=== PATIENT | female | born 1955 | race Caucasian/White ===

== ENCOUNTER 2017-07-21 06:23 | Inpatient (IN) | payer OTHER ==
[2017-07-21] MEDS ORDERED: Succinylcholine Chloride 20 MG/ML 10 ml SYRINGE FS ONE (06:26)
[2017-07-21] MEDS ORDERED: Nitroglycerin 50 MG/250 ML BOT 250 ML ONE (06:33)
[2017-07-21] MEDS ORDERED: Fentanyl 20 MCG/ML 250 ML ONE (06:33)
[2017-07-21] MEDS ORDERED: Propofol 1,000 MG/100 ML VIAL IV ONE (06:55)
[2017-07-21] MEDS ORDERED: Rocuronium Bromide 50 MG/5 ML VIAL ONE ×2 (06:57)
[2017-07-21] MEDS ORDERED: Vecuronium 10 MG VIAL ONE (06:57)
[2017-07-21 07:02] LABS: Hematocrit 54.3 % (36.0-47.0); Mean Platelet Volume 7.7 fL (7.4-10.4); Neutrophil 33 % (42-75); White Blood Cell (WBC) Count 17.6 thou/uL (4.8-10.8)
[2017-07-21 07:13] LABS: Troponin I 0.014 ng/mL (< 0.028)
[2017-07-21 07:40] LABS: Bacteria/HPF None Seen HPF (None Seen); Bilirubin Negative (Negative); Blood, Urine Trace (Negative); Glucose, Urine (Dipstick) Negative (Negative); Hyaline Casts/LPF 4-6 HYALINE CAST LPF (0-3 Hyaline); Ketone, Urine Negative (Negative); Nitrite Negative (Negative); Protein, Urine (Dipstick) Negative (Neg-Trace); RBC/HPF None Seen HPF (0-3); Squamous Epithelial None Seen HPF (0-3); Urobilinogen 0.2 mg/dL (0.2-1.0)
[2017-07-21 07:42] LABS: Oxyhemoglobin 96.8 % (94.0-97.0); Sodium 135 mmol/L (135-148)
[2017-07-21 07:43] LABS: Modified Allen's Test NOT DONE; Vent YES
[2017-07-21 07:44] LABS: Mechanical Tidal Volume 500 ml; Mode IMV
--- NOTE | 2017-07-21 07:48 | RAD ---
PORTABLE SUPINE CHEST 1 VIEW: Date: 07/21/17 HISTORY: 61-year-old female with respiratory insufficiency. Central line placement. COMPARISON: 07/21/17. FINDINGS: NG tube and endotracheal tubes remain in place and stable. This is not a normal position. Extensive b ilateral alveolar and interstitial parenchymal changes, more so on the right lung, stable. IMPRESSION: Right subclavian catheter is coiled in the supraclavicular region and may well need to be reinserted. The tip extends somewhat cranially, not in a normal position. No pneumothorax. Stable extensive pare nchymal lung disease. Stable endotracheal tube and NG tube. POS: OFF
[2017-07-21 07:49] LABS: Lactic Acid - Sepsis 8.6 mmol/L (0.5-2.2)
[2017-07-21 07:50] LABS: Amphetamine Not Detected (NotDetected); Methadone Not Detected (NotDetected); Methamphetamine Not Detected (NotDetected)
[2017-07-21] MEDS ORDERED: Cefepime 2 GM/10 ML SYR ONE (08:05)
[2017-07-21 08:15] LABS: Acetaminophen Less than 6.0 mcg/mL (10.0-30.0); Salicylate Less than 8.0 mg/dL (15.0-30.0)
[2017-07-21] MEDS ORDERED: Vancomycin HCl 1.25 GM, Admixture Fee 1 EACH in Sodium Chloride 0.9% 250 ML 250 ML IVPB SCH (08:15)
[2017-07-21 08:17] LABS: ALT (SGPT) 30 U/L (8-55); AST (SGOT) 41 U/L (5-34); Alkaline Phosphatase 82 U/L (40-150); Anion Gap 16 mmol/L (10-20); BUN (Urea Nitrogen) 18 mg/dL (9.8-20.1); Bilirubin, Total 0.3 mg/dL (0.2-1.2); CK (CPK) 80 U/L (29-168); Calc. Creatinine Clearance 0 mL/min (70-130); Calcium 8.1 mg/dL (7.8-10.44); Carbon Dioxide 17 mmol/L (22-29); Chloride 105 mmol/L (98-107); Estimated GFR-MDRD 51; Globulin 3.1 g/dL (2.4-3.5); Magnesium 1.8 mg/dL (1.6-2.6); Protein, Total 6.8 g/dL (6.0-8.3)
--- NOTE | 2017-07-21 08:45 | RAD ---
CHEST 1 VIEW: HISTORY: A 61-year-old female with dyspnea. FINDINGS: NG tube and endotracheal tubes have been placed in satisfactory location. Extensive bilateral alveol ar interstitial opacities more dense throughout the right lung. Findings are certainly concerning fo r extensive bilateral pneumonia versus asymmetric edema. IMPRESSION: Very extensive confluent alveolar and interstitial opacities throughout almost the entire right lung and the left perihilar region, evidence for extensive bilateral pneumonia versus asymmetric edema. L luciano support tubes in place. POS: OFF
--- NOTE | 2017-07-21 08:50 | RAD ---
PORTABLE CHEST 1 VIEW: DATE: 07/21/17. TIME: 7:36 a.m. HISTORY: Central line placement, respiratory failure. FINDINGS: Comparison is made with the earlier exam of 7:08 a.m. There has been interval removal of the right-sided central line. There has been interval placement o f a left subclavian central line with tip in the projection of the SVC close to the cavoatrial juncti on. No pneumothorax is seen. The remainder of the exam is otherwise stable. POS: GUILLERMINA
[2017-07-21] MEDS ORDERED: Ventilator Sedation Protocol 1 EACH FS ONE (09:31)
[2017-07-21] MEDS ORDERED: Acetaminophen 650 MG Suppository PR PRN (09:31)
[2017-07-21] MEDS ORDERED: Bisacodyl 10 MG SUPP PR PRN (09:31)
[2017-07-21] MEDS ORDERED: Ondansetron HCl/PF 4 MG/2 ML Vial IVP PRN (09:31)
[2017-07-21] MEDS ORDERED: DISCONTINUE PREVIOUS NARCOTIC PAIN MEDICATIONS AND BENZODIAZEPINES FS SCH (10:05)
[2017-07-21] MEDS ORDERED: Fentanyl 20 MCG/ML 250 ML IVPB SCH (10:05)
[2017-07-21] MEDS ORDERED: Lorazepam 2 MG/ML VIAL SLOW IVP PRN (10:05)
[2017-07-21] MEDS ORDERED: Propofol 1,000 MG/100 ML VIAL IV PRN (10:05)
--- NOTE | 2017-07-21 11:21 | HP ---
PRIMARY CARE PHYSICIAN: [place] call. CHIEF COMPLAINT: Respiratory distress. HISTORY OF PRESENT ILLNESS: This is a 61-year-old white female who reportedly called EMS due to dif ficulty breathing. When EMS got there, she was in severe respiratory distress, they did put her on BiPAP and bringing her into the emergency room. In the emergency room, she was found to be continue d to be in severe respiratory distress and so she was intubated. No further history is available un certain how long her symptoms have been going on. The remainder of past medical history is taken fr om her chart from 2013. In the emergency room, the patient was found to be severely hypertensive wi th blood pressures in the 200s/140s range. She was also found to be febrile at 100.8. Her lactic a jasper just come back positive, elevated as well as she had a leukocytosis. She was severely acidotic with elevated CO2 and pH of 7.1. The patient has been doing better after intubation and is being ad mitted to the ICU. PAST MEDICAL HISTORY: 1. Hypertension. 2. Migraines. 3. Hypothyroidism. 4. Constipation. 5. Hyperlipidemia. PAST PSYCHIATRIC HISTORY: 1. Anxiety. 2. OCD. 3. Major depression. PAST SURGICAL HISTORY: None. ALLERGIES: PENICILLIN, AMBIEN, KLONOPIN, REMERON, TRAZODONE, and VALIUM. CURRENT MEDICATIONS: Unknown. FAMILY HISTORY: Hypertension in her mother. SOCIAL HISTORY: No tobacco, alcohol, or illicit drug use at her previous admission in 2013, single without children. No known family members. The patient did have some friends come and visit her be fore I arrived in the ER there, currently gone now. REVIEW OF SYSTEMS: Unable to obtain secondary to the patient's intubated and sedated status. PHYSICAL EXAMINATION: VITAL SIGNS: Blood pressure currently 112/65, pulse 111, respirations 22, temperature 98.6, and O2 sat 97% on the ventilator. GENERAL: This is a well-developed, obese white female who is intubated and sedated, now moving air easily. HEENT: Pupils are equally round and reactive to light. They are both dilated to about 5 mm and equ al. Oropharynx intubated. No lesions noted. NECK: No deformity or bruising noted. No JVD. HEART: Regular rate and rhythm, no murmurs, rubs or gallops. LUNGS: Clear to auscultation bilaterally, no wheezes, crackles or rhonchi. The patient has good ai r movement throughout, some rare crackles in bilateral bases. ABDOMEN: Soft, without masses or organomegaly. Intact bowel sounds. GENITOURINARY: The patient has a Wagner catheter in place. No injuries or discharge noted. EXTREMITIES: No clubbing, cyanosis or edema. The patient has good peripheral pulses. SKIN: The patient does have a few very small abraded areas on her right foot and second toe. These did not have any surrounding cellulitis, most to be healing well, very mild. No other rashes or br uising noted. NEUROLOGIC: The patient is sedated on ventilator. She is arousable and can nod her head yes or no. Denies any current pain or complaints rather than goes back to sleep. Denies any family members h aving any relatives. Deep tendon reflexes are 2+ in all extremities. She has downgoing toes bilate rally. She does move all four extremities to stimulation. No facial droop. No eye deviation. PSYCHIATRIC: Unable to assess at this time. LABORATORY DATA: White blood cell count 17.6 with a lymphocytic predominance of 63%, hemoglobin 17, hematocrit 54, and platelet count 494. ABG done right after intubation shows a pH of 7.1, a pCO2 o f 64, and pO2 of 145. Complete metabolic panel was notable for a sodium of 133, bicarbonate of 17, glucose of 290, and AST of 41. The rest of remainder were normal. Brain natriuretic peptide is taye vated at 411. CK-MB and troponin were normal. Lactic acid was elevated at 8.6. Urinalysis shows l arge leukocyte esterase greater than 50 to too numerous to count white blood cells, but no bacteria. Toxicology screen was negative. Her urine drug screen was negative and her blood toxicology scree n was negative for acetaminophen and salicylate. No alcohol. Chest x-ray: I did review the chest x-ray done in the emergency room along with the radiologist's report. Chest x-ray shows extensive a lveolar interstitial opacities throughout the entire right lung in the left perihilar region most li renee pneumonia versus an asymmetric edema. She also had x-rays after her intubation which shows the OG tube in good place. Her initial right-sided central line was reflected back up to where the nec k and so it was related to the left subclavian lines put in and now in good position. ASSESSMENT: 1. Acute respiratory failure, now on the ventilator. 2. Severe pneumonia. 3. Sepsis secondary to severe pneumonia. The patient put on cefepime and vancomycin for likely com munity-acquired pneumonia with PENICILLIN allergy. We will need to recheck a lactic acid and appear s more fluid overloaded than depleted, so will not bolus any fluids at this point. 4. Respiratory acidosis secondary to acute respiratory failure. We will need to repeat an ABG to s ee if this is clear with good ventilation. 5. Hypertensive emergency, improved, now down to normal range blood pressures after sedation with f entanyl and propofol. 6. Elevated brain natriuretic peptide, possible congestive failure. We will get echocardiogram. 7. Gastrointestinal prophylaxis, put the patient on Pepcid twice a day IV. 8. Deep venous thrombosis prophylaxis, put the patient on Lovenox subcutaneous and sequential compr ession devices and TEDs while in bed and intubated. CODE STATUS: The patient communicated she wanted to be resuscitated to the emergency room staff. W hen she first arrived, she is now unable to communicate. We do not have any family. She is FULL CO DE at this time. 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
--- NOTE | 2017-07-21 12:24 | CON ---
DATE OF CONSULTATION: 07/21/2017 SERVICE: Pulmonary Medicine. HISTORY OF PRESENT ILLNESS: The patient is a 61-year-old white female with past medical history significant for hypertension. She was in her usual state of health last night when she went to bed. This morning, she woke up abruptly short-winded. She presented to the Emergency Department and her blood pressures were in the 250 range. She was desaturating down into the 60s and actively tachypneic. She was intubated after she failed BiPAP. At this point, she is sedated and comfortable. She is alert and able to answer any types of questions that she asked. She denies any current fevers, chills, nausea or vomiting. She had no recent sick contacts. She has no known history of heart disease so far she is aware. PAST MEDICAL HISTORY: 1. Hypertension. 2. Dyslipidemia. 3. Hypothyroidism. 4. Migraine headaches. PAST SURGICAL HISTORY: None. ALLERGIES: PENICILLIN, AMBIEN, KLONOPIN, REMERON, TRAZODONE, VALIUM. MEDICATIONS: List of inpatient medications were reviewed. Multiple updates were made. FAMILY HISTORY: Noncontributory. SOCIAL HISTORY: Negative for alcohol, tobacco or illicit drug use. She has no exposure to chemicals, dusts, asbestos or tuberculosis. REVIEW OF SYSTEMS: A 10-point review of systems including general, head, eyes, ears, nose, throat, cardiovascular, respiratory, GI, , musculoskeletal, neurologic and skin is negative except as mentioned in the HPI. PHYSICAL EXAMINATION: VITAL SIGNS: Afebrile, pulse 104, blood pressure 91/59, respirations 9, saturation 94% on 45% FIO2 and a PEEP of 12. HEENT: Normocephalic, atraumatic. Sclerae are white, conjunctivae pink. Oral and nasal mucosa is moist without lesions. LUNGS: Excellent air entry. Crackles are present throughout bilateral lung torre. HEART: Normal rate, regular. ABDOMEN: Soft, nontender, nondistended, bowel sounds positive. MUSCULOSKELETAL: No cyanosis or clubbing. No pitting in the bilateral lower extremities. NEUROLOGIC: Grossly nonfocal. LABORATORY DATA: WBC 17.6, hemoglobin 17.1, platelets 494,000. Neutrophil count is 33%, lymphocytes were 63%. PH 7.10, pCO2 64, pO2 145 on FIO2 of 50% and a PEEP of 10 at that time. Lactate 8.6, it is now clear to 1.6. Basic metabolic profile, and liver function studies are unremarkable. BNP 411, troponin 0.014. WBCs are greater than 50 and leukocyte esterase is large, but nitrites are unremarkable. No bacteria were identified. Urine drug screen is negative including cocaine, alcohol, acetaminophen and salicylates. IMAGING: Chest x-ray demonstrates asymmetric edema of the right lung greater than the left lung. That being said, the diaphragm were clearly identified making noncardiogenic edema a possibility, although less likely. Endotracheal tube is in good position. The carinal angle is enlarged suggesting left atrial dilation and/or subcarinal lymphadenopathy. Cephalization is evident. Left subclavian central line is in good position. ASSESSMENT: 1. Acute hypoxic respiratory failure. 2. Hypertensive emergency. 3. Flash pulmonary edema. 4. Possible community-acquired pneumonia. 5. Systemic inflammatory response syndrome. PLAN: We will continue on empiric antibiotics. These can be de-escalated tomorrow if her oxygen requirements improved dramatically. We will minimize fluids. At this point, she does not look too terribly volume overloaded, so we will just focus on controlling her blood pressure and seeing whether or not these other issues resolve. Pulmonary and Critical Care will continue to follow while the patient remains in this location. Multiple adjustments have been made to her ventilator settings in order to improve comfort and target goals of ventilation. Critical care time: 30 minutes. DANIELE
[2017-07-21] MEDS: Carvedilol 6.25 MG TAB PO SCH (16:30)
[2017-07-21] MEDS ORDERED: Cefepime 2 GM in Sodium Chloride 0.9% 100 ML IVPB SCH (21:00)
[2017-07-21] MEDS: Famotidine/PF 20 mg/2ml Vial SLOW IVP SCH (21:20)
[2017-07-21] MEDS: Vancomycin HCl 1.25 GM in Sodium Chloride 0.9% 250 ML 250 ML IVPB SCH (21:25)
[2017-07-21] MEDS: Cefepime 2 GM, Syringe 2.5 ML in Sterile Water 10 ML SLOW IVP SCH (21:26)
[2017-07-22 04:24] LABS: #Eosinphils 0.1 thou/uL (0.0-0.7); #Lymphocytes 1.8 thou/uL (1.20-3.40); #Monocytes 0.5 thou/uL (0.11-0.59); #Neutrophils 6.7 thou/uL (1.40-6.50); %Basophils 0.4 % (0.0-1.0); %Eosinophils 0.7 % (0.0-10.0); %Lymphocytes 20.1 % (21.0-51.0); %Monocytes 5.9 % (0.0-10.0); Hematocrit 35.6 % (36.0-47.0); Red Blood Cell (RBC) Count 3.88 mill/uL (4.20-5.40); White Blood Cell (WBC) Count 9.1 thou/uL (4.8-10.8)
[2017-07-22 04:51] LABS: Anion Gap 14 mmol/L (10-20); BUN (Urea Nitrogen) 20 mg/dL (9.8-20.1); Calc. Creatinine Clearance 93 mL/min (70-130); Calcium 7.6 mg/dL (7.8-10.44); Carbon Dioxide 18 mmol/L (22-29); Chloride 111 mmol/L (98-107); Estimated GFR-MDRD 66
--- NOTE | 2017-07-22 07:25 | PDOC.FM ---
Addendum entered and electronically signed by Jai Granados MD 07/22/17 08: 20: Upon clinic chart review patient only on lisinopril 10 mg as an outpatient. Also w/ what appears to be new LBBB on EKG obtained yesterday compared to prior EKG in 2013. Concern for CAD as nidus for flash pulm edema w/ acute left ventricular dysfunction. Will plan to consult cardiology for further evaluation and likely stress vs cath during this hospitalization. Original Note: - Subjective Subjective: DENTON overnight, vital signs stable off nitro gtt. On minimal sedation this AM and able to respond to yes no questions while on spontaneous breathing trial. Denies any pain. Afebrile. States has not been taking BP meds. - Objective MAR Reviewed: Yes Vital Signs & Weight: Vital Signs (12 hours) Temp Pulse Resp BP Pulse Ox 07/22/17 06:58 108 H 109/67 07/22/17 06:00 11 L 07/22/17 04:00 97.9 F 8 L 07/22/17 02:03 90 102/56 L 07/22/17 02:00 7 L 07/22/17 00:00 98.5 F 9 L 07/21/17 22:10 101 H 91/53 L 07/21/17 22:00 8 L 07/21/17 20:00 98.4 F 101 H 11 L 94 L Weight Weight 82.1 kg Most Recent Monitor Data Heart Rate from ECG 108 NIBP 125/89 NIBP BP-Mean 99 Respiration from ECG 14 SpO2 97 I&O: 07/21/17 07/22/17 07/23/17 06:59 06:59 06:59 Intake Total 204.9 Output Total 685 Balance -480.1 Result Diagrams: 07/22/17 04:11 07/22/17 04:11 <Jai Granados - Last Filed: 07/22/17 07:23> - Objective Vital Signs & Weight: Vital Signs (12 hours) Temp Pulse Resp BP Pulse Ox 07/22/17 08:40 91 12 96 07/22/17 08:18 126/68 07/22/17 08:00 99.2 F 91 12 95 07/22/17 07:00 99.2 F 07/22/17 06:58 108 H 109/67 07/22/17 06:00 11 L 07/22/17 04:00 97.9 F 8 L 07/22/17 02:03 90 102/56 L 07/22/17 02:00 7 L 07/22/17 00:00 98.5 F 9 L Weight Weight 82.1 kg Most Recent Monitor Data Heart Rate from ECG 89 NIBP 103/61 NIBP BP-Mean 79 Respiration from ECG 16 SpO2 94 I&O: 07/21/17 07/22/17 07/23/17 06:59 06:59 06:59 Intake Total 204.9 250 Output Total 685 125 Balance -480.1 125 Result Diagrams: 07/22/17 04:11 07/22/17 04:11 <Angelina Mckinnon - Last Filed: 07/22/17 10:45> Phys Exam - Physical Examination Constitutional: NAD intubated HEENT: moist MMs, oral pharynx no lesions Neck: no nodes Respiratory: clear to auscultation bilateral slightly tachycardic Gastrointestinal: soft, non-tender, no distention Musculoskeletal: no edema, pulses present Neurological: moves all 4 limbs Psychiatric: A&O x 3 <Jai Granados - Last Filed: 07/22/17 07:23> Dx/Plan (1) Hypertensive emergency Code(s): I16.1 - HYPERTENSIVE EMERGENCY Status: Acute Plan: Bp stable 120's off nitro gtt will restart home BP meds today and continue to closely monitor will obtain echo in setting of flash pulmonary edema w/ likely acute left ventricular dysfunction Appears to be secondary to non-compliance upon speaking with patient this AM will review her clinic chart to discover home BP meds Pt at risk for CAD as well, will check lipid panel and start on statin/ASA (2) Flash pulmonary edema Code(s): J81.0 - ACUTE PULMONARY EDEMA Status: Acute Plan: 10/17 #1 Doing well on spontaneous breathing trial this AM and w/ clear lung torre. Plan for extubation this AM and likely TXR to tele later this afternoon if she continues to do well CXR this AM pending will obtain echo to monitor for CHF w/ acute left ventricular dysfunction (3) Hypertension Code(s): I10 - ESSENTIAL (PRIMARY) HYPERTENSION Status: Acute Plan: will plan to restart home BP meds s/p clinic chart review (4) Hypothyroidism Code(s): E03.9 - HYPOTHYROIDISM, UNSPECIFIED Status: Acute Plan: Cont. w/ home medications (5) Hyperlipidemia Code(s): E78.5 - HYPERLIPIDEMIA, UNSPECIFIED Status: Acute Plan: Check FLP Statin <Jai Granados - Last Filed: 07/22/17 07:23> Attending Addendum - Attending Addendum I personally evaluated the patient and discussed the management with Dr. Granados on 07/22/17. I agree with the History, Examination, Assessment and Plan documented above with any addition or exceptions noted below. Patient with new LBBB, cardiology consulted for recs. Flash PE significantly resolved, no evidence today of pneumonia, will stop antibiotics. Blood pressures back to normal. Patient also now extubated, will likely move out of ICU later today or tomorrow morning. Speech therapy to follow for assistance restarting diet after extubation. <Angelina Mckinnon - Last Filed: 07/22/17 10:45>
[2017-07-22] MEDS: Carvedilol 6.25 MG TAB PO SCH ×2 (08:18→21:45)
[2017-07-22] MEDS: Cefepime 2 GM, Syringe 2.5 ML in Sterile Water 10 ML SLOW IVP SCH (08:19)
[2017-07-22] MEDS: Famotidine/PF 20 mg/2ml Vial SLOW IVP SCH (08:20)
[2017-07-22] MEDS: Vancomycin HCl 1.25 GM in Sodium Chloride 0.9% 250 ML 250 ML IVPB SCH (08:22)
--- NOTE | 2017-07-22 08:56 | RAD ---
SEMIUPRIGHT PORTABLE CHEST 1 VIEW: HISTORY: A 61-year-old female with respiratory insufficiency and intubation. FINDINGS: Stable life support tubes. There has been marked improvement in the extensive bilateral alveolar int erstitial opacities with some minimal residual parenchymal changes diffusely in the right lung. IMPRESSION: Marked improvement in the bilateral alveolar interstitial opacities with minimal residual parenchymal change in the right lung. Continue short-term followup. No new process. POS: GUILLERMINA
[2017-07-22] MEDS ORDERED: Enoxaparin Sodium 40 MG/0.4 ML SYRINGE SC SCH (09:00)
[2017-07-22] MEDS ORDERED: Lisinopril/Hydrochlorothiazide 10 mg/12.5 mg Tablet PO SCH (10:00)
--- NOTE | 2017-07-22 10:44 | PRG ---
DATE OF SERVICE: 07/22/2017 SERVICE: Pulmonary Medicine. INTERVAL HISTORY: The patient is doing fantastic from a respiratory standpoint. Overnight, we wean ed her PEEP down to 5, and her FiO2 to 21%. She is breathing comfortably on a spontaneous breathing trial this morning. She has woken up perfectly awake and alert. Her heart rate is under better co ntrol and her blood pressure is very stabilized. Otherwise, she has no specific complaints of nause a, vomiting or diarrhea. She is requesting something like ice chips in her mouth because she has go t a dry mouth. PHYSICAL EXAMINATION: VITAL SIGNS: Afebrile with a T-max of 99.2. Pulse 91, blood pressure 126/68, respirations 12 and s aturation 96% on 21% FiO2 and a PEEP of 5. HEENT: Normocephalic, atraumatic. Sclerae are white, conjunctivae pink. Oral and nasal mucosa is moist without lesions. LUNGS: Excellent air entry. Dependent crackles are still present that is much improved, however. There is no prolonged expiratory phase, wheezing or rhonchi. HEART: Normal rate, regular. ABDOMEN: Soft, nontender, nondistended, bowel sounds positive. MUSCULOSKELETAL: No cyanosis or clubbing. No pitting in the bilateral lower extremities. NEUROLOGIC: Grossly nonfocal. LABORATORY DATA: WBC 9.1, hemoglobin 11.5 and platelets are 245,000. Basic metabolic profile is es sentially unremarkable. Lactate cleared. BNP was previously 400 with a normal troponin. Blood cul tures x2 are unremarkable. IMAGING DATA: Chest x-ray demonstrates marked improvement in the asymmetric pulmonary edema. No si gnificant effusions are identified today. Endotracheal tube is in good position. There is a left-s ided subclavian central venous catheter that terminates in a good position. Enteric catheter course s below the level of the diaphragm in the midline. ASSESSMENT: 1. Acute hypoxic respiratory failure. 2. Hypertensive emergency. 3. Flash pulmonary edema. 4. Community-acquired pneumonia. 5. Systemic inflammatory response syndrome, resolved. PLAN: She will continue her spontaneous breathing trial. If she meets criteria at the end of this thing, extubation will be considered. I agree with rapidly de-escalating her antibiotic therapy. S he will remain in the ICU through the day, but if she requires oxygen into the afternoon, I would li ke to keep her in the ICU as she had a rapid decompensation previously. Blood pressure management w ill be continued and we will try to maintain her with a systolic blood pressure less than 160 since she certainly tolerating the 120s. Pulmonary Critical Care will continue to follow for the time polly vega. CRITICAL CARE TIME: 30 minutes.
[2017-07-22] MEDS: Aspirin 81 mg Enteric Coated Tablet PO SCH (12:01)
[2017-07-22 13:25] LABS: Troponin I 0.185 ng/mL (< 0.028)
[2017-07-22] MEDS ORDERED: Furosemide 20 MG/2 ML VIAL SLOW IVP SCH (16:45)
[2017-07-22] MEDS ORDERED: Communication Order-Pharmacy FS SCH (16:45)
[2017-07-22] MEDS: Sodium Chloride 0.9% 1,000 ML IV SCH (16:50)
[2017-07-22] MEDS ORDERED: traMADol HCl 50 MG TAB PO PRN (17:05)
[2017-07-22] MEDS ORDERED: Acetaminophen 325 MG TAB PO PRN (18:38)
[2017-07-22] MEDS ORDERED: Famotidine 20 MG TAB PO SCH (21:00)
[2017-07-22] MEDS ORDERED: Atorvastatin Calcium 40 MG TAB PO SCH (21:00)
--- NOTE | 2017-07-22 21:12 | CON ---
DATE OF CONSULTATION: 07/22/2017 HISTORY OF PRESENT ILLNESS: Mary Javier is a 61-year-old white female who has undergone cardiac catheterization in the past. In 02/1998, she underwent catheterization. She had an ejection fraction of 46% with mid and distal anterolateral wall akinesis. This appeared to be in the diagonal distribution. Coronary arteriography revealed the diagonal to have a 50% to 60% lesion. 50- 60% in a high obtuse marginal and right coronary artery was large and normal. No other records of that time period are available. She did come to the office and was evaluated by Dr. Charles in 03/2017. She has been taking lisinopril and her blood pressure not been controlled. She also had been on metoprolol previously, but stopped that due to feeling short of breath one time. She is having increasing episodes of palpitations after stopping metoprolol. She was started on carvedilol 6.25 b.i.d. She was to return for follow up on 04/30/2017, with an echocardiogram; however, she never did return. She does admit to missing her second dose of carvedilol many times. She states over the last several days, she has been noticing increasing dyspnea on exertion. Last night, she was very short of breath. She called the EMS and she was in severe respiratory distress. She was placed on BiPAP, brought to the emergency room and intubated in the emergency room. She also had a blood pressure of 200/140. Overnight, her pulmonary edema has improved. She has been extubated. She denies any chest, arm, neck or jaw discomfort. PAST MEDICAL HISTORY: Hypertension, hypercholesterolemia, migraine headaches, hypothyroidism. MEDICATIONS: Abilify 15 mg b.i.d., bupropion 150 b.i.d., vitamin D3 of 50,000 units daily, carvedilol 6.25 b.i.d., Paxil 20 daily, lisinopril 10 daily. ALLERGIES: PENICILLIN, VALIUM, TRAZODONE, KLONOPIN and REMERON. OPERATIONS: None. SOCIAL HISTORY: She does not smoke or drink. 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 FAMILY HISTORY: Negative for coronary artery disease, myocardial infarction or CABG. REVIEW OF SYSTEMS: Twelve-point review of systems, otherwise unremarkable. PHYSICAL EXAMINATION: GENERAL: Blood pressure 123/104, pulse 102. HEENT: PERRL. NECK: Supple. LUNGS: Chest reveals expiratory wheezing bilaterally. CARDIOVASCULAR: S1 and S2 are normal, without any S3, S4 or murmurs. Carotid upstrokes normal without bruits. ABDOMEN: Normal bowel sounds, without tenderness or organomegaly. EXTREMITIES: Revealed no clubbing, cyanosis or edema. NEUROLOGIC: Grossly intact. SKIN: Warm and dry. LABORATORY AND IMAGING DATA: EKG reveals sinus tachycardia with left bundle branch block, which is an old finding. Echocardiogram revealed severe left ventricular systolic dysfunction with an ejection fraction of 25% to 30%, evidence for diastolic dysfunction, moderate mitral regurgitation and mild tricuspid regurgitation. White count 9100, hemoglobin 11.5, hematocrit 35.6, platelets 245 (It is of note that her initial hemoglobin was 17.1). PH of 7.10 , pCO2 of 64.4 and pO2 of 145.6. Sodium 139, potassium 4.4, chloride 111, carbon dioxide 18, BUN 20, creatinine 0.87. Cardiac enzymes; CK-MBs are normal. Troponin I is up to 0.200. Cholesterol 195, triglycerides 341, HDL 37 and LDL 90. Lactic acid initially was 8.6. BNP 411.4. Chest x-ray revealed pulmonary edema with right lung, much more affected than the left lung. After intubation and diuresis, her pulmonary edema has dramatically improved bilaterally. IMPRESSION: 1. Status post respiratory arrest. 2. Acute pulmonary edema. 3. Severe left ventricular dysfunction. 4. Acute on chronic systolic and diastolic congestive heart failure. 5. Hypertension, poorly controlled, noncompliant with medications. 6. Hyperlipidemia. 7. History of hypothyroidism. 8. Migraines. 9. Anxiety. 10. History of depression. 11. Obsessive compulsive disorder. RECOMMENDATIONS: I would change the patient to lisinopril plus furosemide. I will gradually increase the carvedilol dose. With flash pulmonary edema and respiratory arrest, she needs to undergo cardiac catheterization. Risks of this were discussed with the patient including , myocardial infarction, dye reaction, vascular injury, CVA, transfusion, limb loss, renal loss, etc. Also, risks of stent placement were discussed including , myocardial infarction, emergent CABG, restenosis, stent thrombosis, vessel perforation, etc. With her history of noncompliance with her carvedilol, I would only place a bare metal stent. [facility]
[2017-07-22] MEDS ORDERED: Aripiprazole 15 MG TAB PO SCH (21:45)
[2017-07-22] MEDS ORDERED: PARoxetine 20 MG TAB PO SCH (22:00)
[2017-07-22] MEDS ORDERED: Bupropion 150 MG SR TAB PO SCH (22:00)
[2017-07-23 04:53] LABS: Anion Gap 7 mmol/L (10-20); BUN (Urea Nitrogen) 14 mg/dL (9.8-20.1); Calc. Creatinine Clearance 108 mL/min (70-130); Calcium 8.3 mg/dL (7.8-10.44); Carbon Dioxide 29 mmol/L (22-29); Chloride 102 mmol/L (98-107); Estimated GFR-MDRD 83
[2017-07-23] MEDS: Sodium Chloride 0.9% 1,000 ML IV SCH (05:21)
[2017-07-23] MEDS: Carvedilol 6.25 MG TAB PO SCH ×3 (05:21→20:22)
[2017-07-23] MEDS ORDERED: Heparin 10,000 UNITS/1 ML VIAL ONE (07:32)
[2017-07-23 08:13] LABS: Free T3 2.45 pg/mL (1.71-3.71)
--- NOTE | 2017-07-23 08:35 | PDOC.FM ---
- Subjective Subjective: DENTON overnight, VSS on PO BP meds. Afebrile. on minimal O2 NC this AM. No new complaints. - Objective MAR Reviewed: Yes Vital Signs & Weight: Vital Signs (12 hours) Temp Pulse Resp BP Pulse Ox 07/23/17 08:00 98.3 F 79 16 100 07/23/17 05:21 105/71 07/23/17 03:32 97 07/23/17 03:00 98.3 F 07/22/17 23:00 98.2 F 07/22/17 21:45 140/80 Weight Admit Weight 81.647 kg Weight 82 kg Most Recent Monitor Data Heart Rate from ECG 73 NIBP 124/67 NIBP BP-Mean 81 Respiration from ECG 14 SpO2 98 I&O: 07/22/17 07/23/17 07/24/17 06:59 06:59 06:59 Intake Total 204.9 1470 Output Total 685 1860 215 Balance -480.1 -390 -215 Result Diagrams: 07/22/17 04:11 07/23/17 04:20 <Jai Granados - Last Filed: 07/23/17 08:33> - Objective Vital Signs & Weight: Vital Signs (12 hours) Temp Pulse Resp BP Pulse Ox 07/23/17 08:58 124/67 07/23/17 08:00 98.3 F 79 16 100 07/23/17 05:21 105/71 07/23/17 03:32 97 07/23/17 03:00 98.3 F 07/22/17 23:00 98.2 F Weight Admit Weight 81.647 kg Weight 82 kg Most Recent Monitor Data Heart Rate from ECG 85 NIBP 128/67 NIBP BP-Mean 83 Respiration from ECG 15 SpO2 97 I&O: 07/22/17 07/23/17 07/24/17 06:59 06:59 06:59 Intake Total 204.9 1470 40 Output Total 685 1860 275 Balance -480.1 -390 -060 Result Diagrams: 07/22/17 04:11 07/23/17 04:20 <Angelina Mckinnon - Last Filed: 07/23/17 10:00> Phys Exam - Physical Examination Constitutional: NAD HEENT: PERRLA Neck: no nodes Respiratory: no wheezing Cardiovascular: RRR, no significant murmur Gastrointestinal: soft, non-tender Musculoskeletal: no edema, pulses present Neurological: non-focal, normal sensation, moves all 4 limbs Psychiatric: A&O x 3 Skin: cap refill <2 seconds <Jai Granados - Last Filed: 07/23/17 08:33> Dx/Plan (1) Hypertensive emergency Code(s): I16.1 - HYPERTENSIVE EMERGENCY Status: Acute Plan: Bp stable 120's off nitro gtt on PO BP meds ECHO showing 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 w/ statin/ASA Plan to TXR out of ICU s/p cath (2) Flash pulmonary edema Code(s): J81.0 - ACUTE PULMONARY EDEMA Status: Acute Plan: 2/ #1 Will attempt to wean off NC today Pt to go for heart cath today w/ cardiology (3) Hypertension Code(s): I10 - ESSENTIAL (PRIMARY) HYPERTENSION Status: Acute Plan: Cont. w/ PO BP meds (4) Hypothyroidism Code(s): E03.9 - HYPOTHYROIDISM, UNSPECIFIED Status: Acute Plan: Cont. w/ home medications Elevated TSH Will check T3/T4 and titrate meds as needed (5) Hyperlipidemia Code(s): E78.5 - HYPERLIPIDEMIA, UNSPECIFIED Status: Acute Plan: cont. w/ Statin <Jai Granados - Last Filed: 07/23/17 08:33> Attending Addendum - Attending Addendum I personally evaluated the patient and discussed the management with Dr. Granados on 07/23/17. I agree with the History, Examination, Assessment and Plan documented above with any addition or exceptions noted below. Cath today. Needs outpatient workup for GLYNN. Wean off O2 today. As long as cath goes well, will transfer out of ICU today. <Angelina Mckinnon - Last Filed: 07/23/17 10:00>
[2017-07-23] MEDS: Bupropion 150 MG SR TAB PO SCH ×2 (08:57→20:22)
[2017-07-23] MEDS: Aspirin 81 mg Enteric Coated Tablet PO SCH (08:57)
[2017-07-23] MEDS: Aripiprazole 15 MG TAB PO SCH ×2 (08:58→20:22)
[2017-07-23] MEDS: Lisinopril 10 MG TAB PO SCH (08:58)
[2017-07-23] MEDS ORDERED: Metoprolol Tartrate 100 MG TAB PO SCH (09:00)
[2017-07-23] MEDS ORDERED: PARoxetine 20 MG TAB PO SCH ×2 (09:00→21:00)
[2017-07-23] MEDS ORDERED: Lisinopril/Hydrochlorothiazide 10 mg/12.5 mg Tablet PO SCH (09:00)
[2017-07-23] MEDS ORDERED: Fentanyl 100 MCG/2 ML VIAL ONE (10:00)
[2017-07-23] MEDS ORDERED: Midazolam HCl 2 mg/2 ml Vial ONE (10:00)
[2017-07-23] MEDS ORDERED: Lidocaine 1% (PF) 30 ML VIAL ONE (10:10)
[2017-07-23] MEDS ORDERED: Protamine Sulfate 50 MG/5 ML VIAL ONE (10:39)
[2017-07-23] MEDS ORDERED: Sodium Chloride 0.9% 1,000 ML IV SCH (10:54)
[2017-07-23] MEDS ORDERED: Sodium Chloride 0.9% 200 ML IV SCH (11:00)
--- NOTE | 2017-07-23 13:04 | PRG ---
DATE OF SERVICE: 07/23/2017 SERVICE: Pulmonary Medicine. INTERVAL HISTORY: The patient is doing great from cardiovascular and respiratory standpoint. She i s on 2 liters nasal cannula. She denies any shortness of breath at this time. Otherwise, she is re turning to her usual state of health. PHYSICAL EXAMINATION: VITAL SIGNS: Afebrile, pulse 75, blood pressure 128/63, respirations 22, saturation 98% on 2 liters nasal cannula. GENERAL: Patient is awake, alert, in no apparent distress. LUNGS: Decent air entry with no prolonged expiratory phase. Dependent crackles are present. HEART: Normal rate, regular. ABDOMEN: Soft, nontender, nondistended. Bowel sounds positive. MUSCULOSKELETAL: No cyanosis or clubbing. No pitting in the bilateral lower extremities. NEUROLOGIC: Grossly nonfocal. LABORATORY DATA: Basic metabolic profile is completely unremarkable. TSH was elevated, but the T3 and T4 fall within the normal limits. Urine culture is growing E. coli. Blood culture x2 is unrema rkable. IMAGING: Echocardiogram demonstrates a reduced ejection fraction of 25% to 30% with E/A flow revers al suggesting diastolic dysfunction. There is moderate mitral regurgitation. ASSESSMENT: 1. Acute systolic and diastolic heart failure. 2. Acute hypoxic respiratory failure, improving. 3. Hypertensive emergency. 4. Obstructive sleep apnea, suspected. PLAN: The patient can be transitioned out of the ICU to the telemetry unit today. Pulmonary Critic al Care will continue to follow for the time being. In the outpatient setting, she will need to be evaluated for sleep apnea. Hopefully, the cardiac catheterization will demonstrate clean coronaries .
--- NOTE | 2017-07-23 14:54 | CCL ---
CARDIAC CATHETERIZATION REPORT: Date: 07/23/17 INDICATION: Pulmonary edema and respiratory arrest, left ventricular dysfunction. DESCRIPTION OF PROCEDURE: The patient was brought to the cardiac metallurgical lab technician and the right and left groins were prepped and draped. The patient was given fentanyl 25 mg IV and Versed 1 mg IV. Right groin was infiltrated with lidocaine. A 4 [place] sheath was inserted and there was difficulty in advancing a [place] wire. Decision was made to go to the left femoral artery. This area was anesthetized with 1% lidocaine. A 7 [place] sheath was placed into the left femoral artery. Heparin 3,000 units given intravenously. A 6 [place] angulated pigtail was inserted over the J-wire and this was advanced to the left ventricle and pressures obtained. Left ventriculogram was performed using 30 ml of contrast at 12 ml/s in a BAI 30 degree projection. Pressures were obtained and the pigtail was removed over an exchanged wire for a 6 [place] left-4. This was used for left coronary arteriography and this was exchanged over the wire for a 6 [place] right- 4. Right coronary arteriography was performed. The right-4 was exchanged over the wire for the angulated pigtail. Abdominal aortogram was then performed to assess renal artery. This was performed using digital subtraction angiography. 20 mL of contrast was given at 12 mL/second. The pigtail was then removed. Protamine 15 mg given intravenously. Sheaths were pulled and adequate hemostasis was obtained. RESULTS: PRESSURES: Aorta 127/71, mean of 95 Left Ventricle 100/11 LEFT VENTRICULOGRAM: There was moderate global left ventricular hypokinesis with ejection fraction of 30-35%. There was moderate mitral regurgitation. CORONARY ARTERIOGRAPHY: 1. The left main was normal. 2. The LAD had a 50% proximal stenosis. 3. The circumflex was normal. 4. The right coronary artery had a 20% mid stenosis. ABDOMINAL AORTOGRAM: The aorta was normal. The renal arteries were normal. The iliac and femoral arteries were normal bilaterally. IMPRESSION: 1. Minimal coronary artery disease. 2. Moderate left ventricular dysfunction. 3. Moderate mitral regurgitation. 4. Normal abdominal aorta and normal renal arteries. [facility]
[2017-07-23] MEDS ORDERED: Iopamidol 370 76% 100 ML VIAL ONE (16:47)
[2017-07-23] MEDS ORDERED: Iopamidol 370 76% 50 ML VIAL FS ONE (16:47)
[2017-07-23] MEDS ORDERED: FLU VACC QS2017-18 36 mo. & older 0.5 ML SYRINGE IM ONE (21:00)
[2017-07-23] MEDS ORDERED: Atorvastatin Calcium 20 MG TAB PO SCH (21:00)
[2017-07-24] MEDS ORDERED: Levothyroxine Sodium 25 MCG TAB PO SCH (06:00)
[2017-07-24 06:29] LABS: Anion Gap 9 mmol/L (10-20); BUN (Urea Nitrogen) 13 mg/dL (9.8-20.1); Calc. Creatinine Clearance 111 mL/min (70-130); Calcium 8.4 mg/dL (7.8-10.44); Carbon Dioxide 27 mmol/L (22-29); Chloride 103 mmol/L (98-107); Estimated GFR-MDRD 79
--- NOTE | 2017-07-24 07:32 | PDOC.FM ---
- Subjective Subjective: DENTON overnight, VSS, afebrile, no new complaints. - Objective MAR Reviewed: Yes Vital Signs & Weight: Vital Signs (12 hours) Temp Pulse Resp BP BP Pulse Ox 07/24/17 05:02 111/55 L 07/24/17 03:21 98.4 F 84 14 89/44 L 95 07/24/17 01:39 94 L 07/23/17 23:14 98.6 F 88 16 110/60 92 L 07/23/17 20:22 136/66 07/23/17 20:17 98.5 F 86 14 91 L 07/23/17 19:50 98.5 F 86 14 114/53 L 91 L Weight Admit Weight 81.647 kg Weight 88.405 kg Most Recent Monitor Data Heart Rate from ECG 82 NIBP 132/75 NIBP BP-Mean 95 Respiration from ECG 17 SpO2 100 I&O: 07/23/17 07/24/17 07/25/17 06:59 06:59 06:59 Intake Total 1470 1022 Output Total 1711 0474 Balance -390 -782 Result Diagrams: 07/22/17 04:11 07/24/17 05:34 <Jai Granados K - Last Filed: 07/24/17 07:29> - Objective Vital Signs & Weight: Vital Signs (12 hours) Temp Pulse Pulse Pulse Resp BP BP 07/24/17 16:00 98.4 F 83 20 07/24/17 12:00 98.4 F 96 20 07/24/17 10:18 82 78 170/86 H 07/24/17 08:46 131/74 07/24/17 08:45 131/74 07/24/17 08:00 98.6 F 79 20 07/24/17 05:02 BP BP Pulse Ox Pulse Ox Pulse Ox 07/24/17 16:00 147/77 H 94 L 07/24/17 12:00 138/82 98 07/24/17 10:18 144/63 H 92 L 94 L 07/24/17 08:46 07/24/17 08:45 07/24/17 08:00 131/74 93 L 07/24/17 05:02 111/55 L Weight Admit Weight 81.647 kg Weight 88.405 kg Most Recent Monitor Data Heart Rate from ECG 82 NIBP 132/75 NIBP BP-Mean 95 Respiration from ECG 17 SpO2 100 I&O: 07/23/17 07/24/17 07/25/17 06:59 06:59 06:59 Intake Total 1470 1022 Output Total 9580 6355 Balance -390 -853 Result Diagrams: 07/22/17 04:11 07/24/17 05:34 <Angelina Mckinnon - Last Filed: 07/24/17 16:32> Phys Exam - Physical Examination Constitutional: NAD HEENT: PERRLA, moist MMs Neck: no nodes, no JVD Respiratory: no wheezing, no rales Cardiovascular: RRR, no significant murmur Gastrointestinal: soft, non-tender Musculoskeletal: no edema, pulses present Neurological: moves all 4 limbs Psychiatric: normal affect, A&O x 3 Skin: cap refill <2 seconds <Jai Granados - Last Filed: 07/24/17 07:29> Dx/Plan (1) Hypertensive emergency Code(s): I16.1 - HYPERTENSIVE EMERGENCY Status: Resolved Plan: Bp stable 110-130's systolic on PO anti-hypertensive regimen Cath clean besides 50% proximal stenosis yesterday, no stents placed discussed w/ cardiology this AM and feel pt stable for potential d/c home if pressures remain stable this AM on PO regimen Concern for compliance upon discharge Importance of taking medications as prescribed discussed w/ patient who expressed understanding Wagner d/c'ed Subclavian central line d/c'ed Pt to be up and ambulating to bathroom and w/ walking program/PT/OT today (2) Flash pulmonary edema Code(s): J81.0 - ACUTE PULMONARY EDEMA Status: Resolved Plan: Satting well on RA this AM (3) Hypertension Code(s): I10 - ESSENTIAL (PRIMARY) HYPERTENSION Status: Acute Plan: Cont. w/ PO BP meds See #1 (4) Hypothyroidism Code(s): E03.9 - HYPOTHYROIDISM, UNSPECIFIED Status: Acute Plan: Cont. w/ home medications (5) Hyperlipidemia Code(s): E78.5 - HYPERLIPIDEMIA, UNSPECIFIED Status: Acute Plan: cont. w/ Statin <Jai Granados - Last Filed: 07/24/17 07:29> Attending Addendum - Attending Addendum I personally evaluated the patient and discussed the management with Dr. Granados on 07/24/17. I agree with the History, Examination, Assessment and Plan documented above with any addition or exceptions noted below. Doing well, working with PT today. Off of oxygen. BP now controlled. Will rpt echo and initiate referral for sleep study as an outpatient. Discharge home today as long as she does well with PT. <Angelina Mckinnon - Last Filed: 07/24/17 16:32>
[2017-07-24] MEDS: Bupropion 150 MG SR TAB PO SCH (08:45)
[2017-07-24] MEDS: Lisinopril 10 MG TAB PO SCH (08:45)
[2017-07-24] MEDS: Carvedilol 6.25 MG TAB PO SCH (08:46)
[2017-07-24] MEDS: Aripiprazole 15 MG TAB PO SCH (08:47)
[2017-07-24] MEDS: Aspirin 81 mg Enteric Coated Tablet PO SCH (08:47)
[2017-07-24] MEDS ORDERED: Cipro 250 MG TAB PO SCH (09:00)
[2017-07-24] MEDS ORDERED: Furosemide 20 MG TAB PO SCH (09:00)
[2017-07-24] MEDS ORDERED: Ciprofloxacin 500 MG TAB PO SCH (09:00)
[2017-07-24 11:28] VITALS: BMI 34.5
[2017-07-24 12:25] VITALS: TEMP 98.4
--- NOTE | 2017-07-24 13:51 | DIS-2 ---
DATE OF ADMISSION: 07/21/2017 DATE OF DISCHARGE: 07/24/2017 ADMITTING ATTENDING: Dr. Manuel, [facility]. DISCHARGE ATTENDING: Dr. Mckinnon at [facility]\T\[facility]. RESIDENT: Jai Granados M.D. CONSULTATIONS: 1. Critical Care, Dr. Thomas. 2. Cardiology, Dr. Tao. PROCEDURES: 1. Echocardiogram showing EF 25-30%. 2. Cardiac catheterization showing 50% stenosis of the proximal LAD, but otherwise within normal limits. PRIMARY DIAGNOSES: 1. Hypertensive emergency 2. Flash pulmonary edema. 3. Acute hypoxic respiratory failure 4. Cardiogenic shock. 5. Urinary tract infection. SECONDARY DIAGNOSES: 1. Hypertension. 2. Hyperlipidemia. 3. Medication noncompliance. 4. Hypothyroidism. 5. Mixed systolic, diastolic congestive heart failure. 6. Anxiety. DISCHARGE MEDICATIONS: 1. Aspirin 81 mg p.o. daily. 2. Lipitor 20 mg p.o. at bedtime. 3. Coreg 6.25 mg p.o. b.i.d. with meals. 4. Ciprofloxacin 500 mg p.o. daily. 5. Lasix 20 mg p.o. daily. 6. Synthroid 25 mcg p.o. daily. 7. Lisinopril 10 mg p.o. daily. 8. Abilify 50 mg p.o. b.i.d. 9. Wellbutrin 150 mg p.o. b.i.d. 10. Paxil 20 mg p.o. at bedtime. DISCONTINUED MEDICATIONS: None. HISTORY OF PRESENT ILLNESS AND HOSPITAL COURSE: The patient is a 61-year-old female who presented to the ER secondary to acute respiratory distress which started earlier that evening. She was placed on BiPAP en route via EMS and with continued respiratory distress in the ER, decision was made for intubation. Patient also with significantly elevated blood pressure in the 200's /140's. Chest X-ray showing opacification of the right lung and elevated BNP at 411. Initial lactic acid of 8.6 with resolution of 1.6 status post intubation and indeterminate troponin 0.2 which down trended thereafter. Initial UA obtained concerning for possible UTI, growing out pansensitive E. coli on culture and UDS negative. Blood pressure with significant improvement back into normal range status post sedation for intubation. The patient was successfully extubated status post successful spontaneous breathing trial and repeat chest x-ray showing resolution of the significant edema found in the right lung. Echocardiogram showing an EF of 25-30%, which is down from her baseline from prior echocardiogram obtained earlier in the year. Cardiology was consulted for further recommendations and the patient subsequently went for cardiac catheterization to rule out possible coronary artery disease as the etiology for flash pulmonary edema and hypertensive emergency. 50% proximal LAD stenosis was found but otherwise the cardiac catheterization was otherwise normal. The patient was started on medical management of her mixed systolic, diastolic CHF, which was likely exacerbated from her hypertensive emergency and will follow up with Cardiology in the outpatient setting. Blood pressure remained stable on p.o. medication for approximately 24 hours prior to discharge home. The patient was offered home health and by Case Management, however, this was denied prior to discharge home. Of note, patient was intially admitted to the hospitalist service, but after discovering patient was seen at [facility] care was transitioned over to the resident service on 2016. DISPOSITION: Stable. DISCHARGE INSTRUCTIONS: 1. Location: Home. 2. Follow up with primary care provider in 7-10 days. 3. Follow up with Pulmonology, Dr. Thomas in 7-10 days for evaluation for sleep study. 4. Activity: Cardiopulmonary limits. MTDD
--- NOTE | 2017-07-24 14:26 | PRG ---
DATE OF SERVICE: 07/24/2017 SERVICE: Pulmonary Medicine INTERVAL HISTORY: The patient is doing fine from a respiratory standpoint. She is on room air. Sh gt denies any current fevers, chills, nausea, vomiting or chest discomfort. Otherwise, she is return ing to her usual state of health. She is being considered for discharge today and there is certainl y nothing from a respiratory standpoint standing in her way. PHYSICAL EXAMINATION: VITAL SIGNS: Afebrile, pulse 96, blood pressure 138/82, respirations 20, saturation 98% on room air . GENERAL: The patient is awake, alert, in no apparent distress. LUNGS: Excellent air entry. That is no prolonged expiratory phase. No wheezing, rhonchi, or crack les are present. HEART: Normal rate, regular. ABDOMEN: Soft, nontender, nondistended. Bowel sounds positive. MUSCULOSKELETAL: No cyanosis or clubbing. No pitting in the bilateral lower extremities. NEUROLOGIC: Grossly nonfocal. LABORATORY DATA: Basic metabolic profile is completely unremarkable with potassium of 4.1, the sodi um is up trending to 135. Troponin was previously down trending. ASSESSMENT: 1. Acute systolic and diastolic heart failure. 2. Acute hypoxic respiratory failure, resolved. 3. Hypertensive emergency. 4. Obstructive sleep apnea, suspected. PLAN: The patient will likely be discharged from the hospital today. Medical management for cardio myopathy is being pursued. I would like to see her in clinic in 2-4 weeks in the outpatient setting , so that we can arrange for her to undergo a sleep study. She has no further need for inpatient Pu lmonary critical care opinion. As such, I will sign off.
[2017-07-24 16:21] VITALS: BP 147/77
[2017-07-24] MEDS ORDERED: Carvedilol 6.25 MG TAB PO SCH (17:00)
--- NOTE | 2017-07-28 10:24 | PQF ---
KASSIE WOOTEN RYAN ANDREW MD [id number] CLINICAL DOCUMENTATION CLARIFICATION FORM: POST DISCHARGE Addendum to original discharge summary date: ____ Late entry note date: __ KASSIE WOOTEN [id number] FRANNIE KELLEY MD YOUR INPUT IS NEEDED TO CORRECTLY CODE A DIAGNOSIS FOR YOUR PATIENT. DATE: 07/28/2017 ATTN: DR. KELLEY Please exercise your independent, professional judgment in responding to the clarification form. Clinical indicators are provided on the bottom of this form for your review Please check appropriate box(s) to clarify if the following diagnosis has been ruled in our ruled out: SEPSIS (CDI/Coding list diagnosis here) [ ] Ruled in diagnosis [ ] Continue to treat [ ] Resolved [ ] Ruled out diagnosis [ ] Cannot rule out diagnosis [ ] Other diagnosis [ ] Unable to determine In addition, please specify: Present on Admission (POA): [ ] Yes [ ] No [ X ] Unable to determine For continuity of documentation, please document condition throughout progress notes and discharge summary. Thank You. CLINICAL INDICATORS - SIGNS / SYMPTOMS / LABS H&P - SEPSIS 2/2 SEVERE PNEUMONIA RESPIRATORY ACIDOSIS BLOOD CULTURE NEGATIVE 07/22 PN - SIRS, RESOLVED DS - UTI RISK FACTORS PNEUMONIA ACUTE RESPIRATORY FAILURE TREATMENTS CEFEPIME, VANCOMYCIN (This form is maintained as a part of the permanent medical record) 2014 [employer], [employer]. All Rights Reserved Kaya John, [facility], [facility] [email or web address] [phone] [facility]
--- NOTE | 2017-08-03 14:27 | EKG ---
Test Reason : Blood Pressure : / mmHG Vent. Rate : 076 BPM Atrial Rate : 076 BPM P-R Int : 160 ms QRS Dur : 084 ms QT Int : 456 ms P-R-T Axes : 050 027 017 degrees QTc Int : 513 ms Normal sinus rhythm Prolonged QT Abnormal ECG When compared with ECG of 21-JUL-2017 08:53, (Unconfirmed) Vent. rate has decreased BY 58 BPM Left bundle branch block is no longer Present Confirmed by RONNIE HINES (2) on 08/03/2017 2:26:28 PM Referred By: DONNY Confirmed By:RONNIE HINES
--- NOTE | 2017-08-23 12:12 | EKG ---
Test Reason : Blood Pressure : / mmHG Vent. Rate : 153 BPM Atrial Rate : 153 BPM P-R Int : 000 ms QRS Dur : 154 ms QT Int : 292 ms P-R-T Axes : -25 -39 105 degrees QTc Int : 466 ms Sinus tachycardia with Fusion complexes Left axis deviation Left bundle branch block Abnormal ECG Confirmed by OLLIE CORMIER, WANDA Gupta (17), video news editor RAIMUNDO SANDRA (16) on 08/23/2017 12:12:29 PM Referred By: Confirmed By:WANDA LEVIN MD
--- NOTE | 2017-08-23 12:14 | EKG ---
Test Reason : Blood Pressure : / mmHG Vent. Rate : 134 BPM Atrial Rate : 134 BPM P-R Int : 000 ms QRS Dur : 140 ms QT Int : 328 ms P-R-T Axes : 015 -22 114 degrees QTc Int : 489 ms Sinus tachycardia Left bundle branch block Abnormal ECG Confirmed by OLLIE CORMIER, WANDA Gupta (17), editorial cartoonist RAIMUNDO SANDRA (16) on 08/23/2017 12:13:53 PM Referred By: Confirmed By:WANDA LEVIN MD
== END 2017-07-24 16:27 | disposition home or self-care (01) | DRG 208 ==
LOC: ERS 06:23 → CCU 08:12 → 2SE 07-23 13:53
PROVIDERS: ADMIT Emergency Medicine; ATTEND Emergency Medicine
PROC: 5A1945Z Respiratory Ventilation, 24-96 Consecutive Hours (ICD-10-PCS; 2017-07-21)
PROC: 02HV33Z Insertion of Infusion Device into Superior Vena Cava, Percutaneous Approach (ICD-10-PCS; 2017-07-21)
PROC: 0BH17EZ Insertion of Endotracheal Airway into Trachea, Via Natural or Artificial Opening (ICD-10-PCS; 2017-07-21)
PROC: 4A023N7 Measurement of Cardiac Sampling and Pressure, Left Heart, Percutaneous Approach (ICD-10-PCS; principal; 2017-07-23)
PROC: B2111ZZ Fluoroscopy of Multiple Coronary Arteries using Low Osmolar Contrast (ICD-10-PCS; 2017-07-23)
PROC: B3101ZZ Fluoroscopy of Thoracic Aorta using Low Osmolar Contrast (ICD-10-PCS; 2017-07-23)
PROC: B2151ZZ Fluoroscopy of Left Heart using Low Osmolar Contrast (ICD-10-PCS; 2017-07-23)
DX: J96.01 Acute respiratory failure with hypoxia (principal); R57.0 Cardiogenic shock; I50.43 Acute on chronic combined systolic (congestive) and diastolic (congestive) heart failure; I16.1 Hypertensive emergency; N39.0 Urinary tract infection, site not specified; I11.0 Hypertensive heart disease with heart failure; G47.33 Obstructive sleep apnea (adult) (pediatric); Z23 Encounter for immunization; E78.5 Hyperlipidemia, unspecified; F41.9 Anxiety disorder, unspecified; Z91.14 Patient's other noncompliance with medication regimen; G43.909 Migraine, unspecified, not intractable, without status migrainosus; F42.9 Obsessive-compulsive disorder, unspecified; I25.10 Atherosclerotic heart disease of native coronary artery without angina pectoris; I44.7 Left bundle-branch block, unspecified; B96.20 Unspecified Escherichia coli [E. coli] as the cause of diseases classified elsewhere; I34.0 Nonrheumatic mitral (valve) insufficiency
CPT/HCPCS: 31500; 36415; 36556; 51702; 71010; 80048; 80053; 80061; 80306; 80307; 81003; 81015; 82553; 82805; 83605; 83735; 83880; 84439; 84443; 84481; 84484; 85025; 85347; 87040; 87077; 87086; 87186; 90471; 90682; 90732; 93005; 93010; 93306; 93458; 93798; 94002; 94003; 94660; 96365; 96366; 96368; 96375; 99152; 99153; A4216; C1769; G0008; G0009; G8978-GP-CM; G8979-GP-CJ; G8987-GO-CL; G8988-GO-CI; J0692; J1644; J1650; J1940; J2001; J2250; J2704; J2720; J3010; J3370; J7050; Q2036; S0028

== ENCOUNTER 2020-12-05 21:54 | Emergency (ER) | payer BC, OTHER ==
[2020-12-05 23:21] LABS: #Basophils 0.1 thou/uL (0.0-0.2); #Eosinphils 0.1 thou/uL (0.0-0.7); #Lymphocytes 2.6 thou/uL (1.20-3.40); #Monocytes 0.4 thou/uL (0.11-0.59); #Neutrophils 3.7 thou/uL (1.40-6.50); %Basophils 0.9 % (0.0-1.0); %Eosinophils 1.5 % (0.0-10.0); %Lymphocytes 38.1 % (21.0-51.0); %Monocytes 6.1 % (0.0-10.0); %Neutrophils 53.4 % (42.0-75.0); Hemoglobin 13.7 g/dL (12.0-16.0); Mean Corpuscular HGB CONC 35.7 g/dL (32.0-36.0); Mean Corpuscular Hemoglobin 31.7 pg (27.0-31.0); Mean Corpuscular Volume 88.8 fL (78.0-98.0); Mean Platelet Volume 6.8 fL (7.4-10.4); Platelet Count 299 thou/uL (130-400); RBC Distribution Width 12.1 % (11.5-14.5); Red Blood Cell (RBC) Count 4.33 mill/uL (4.20-5.40); White Blood Cell (WBC) Count 6.9 thou/uL (4.8-10.8)
[2020-12-05] MEDS ORDERED: hydrALAZINE 20 MG/ML VIAL ONE (23:33)
[2020-12-05 23:41] LABS: ALT (SGPT) 11 U/L (8-55); AST (SGOT) 14 U/L (5-34); Albumin 4.4 g/dL (3.4-4.8); Alkaline Phosphatase 72 U/L (40-110); Anion Gap 23 mmol/L (10-20); BUN (Urea Nitrogen) 15 mg/dL (9.8-20.1); Bilirubin, Total 0.2 mg/dL (0.2-1.2); Calc. Creatinine Clearance 0 mL/min (70-130); Calcium 9.5 mg/dL (7.8-10.44); Carbon Dioxide 17 mmol/L (23-31); Chloride 100 mmol/L (98-107); Glucose 146 mg/dL (80-115); Potassium 4.1 mmol/L (3.5-5.1); Protein, Total 8.4 g/dL (5.8-8.1); Sodium 136 mmol/L (136-145)
[2020-12-06] MEDS ORDERED: cloNIDine 0.1 MG TAB ONE (00:20)
[2020-12-06] MEDS ORDERED: Lorazepam 2 MG/ML VIAL ONE (00:58)
== END 2020-12-06 02:06 | disposition home or self-care (01) ==
LOC: ERS 21:54
DX: R06.02 Shortness of breath (principal); I10 Essential (primary) hypertension
CPT/HCPCS: 36415; 71045; 80053; 83880; 84484; 85025; 93005; 96374; 96375; J0360; J2060

== ENCOUNTER 2020-12-08 09:33 | Inpatient (IN) | payer BC, OTHER ==
[2020-12-08] MEDS ORDERED: Aspirin 81 mg Enteric Coated Tablet ONE (09:51)
[2020-12-08 10:03] LABS: #Eosinphils 0.1 thou/uL (0.0-0.7); #Monocytes 0.5 thou/uL (0.11-0.59); %Basophils 0.6 % (0.0-1.0); %Neutrophils 45.5 % (42.0-75.0); Hemoglobin 12.5 g/dL (12.0-16.0); Mean Corpuscular HGB CONC 34.4 g/dL (32.0-36.0); Mean Corpuscular Volume 90.1 fL (78.0-98.0); Mean Platelet Volume 6.9 fL (7.4-10.4); Platelet Count 268 thou/uL (130-400); RBC Distribution Width 12.1 % (11.5-14.5); Red Blood Cell (RBC) Count 4.02 mill/uL (4.20-5.40); White Blood Cell (WBC) Count 6.7 thou/uL (4.8-10.8)
[2020-12-08 10:29] LABS: ALT (SGPT) 11 U/L (8-55); AST (SGOT) 12 U/L (5-34); Albumin 4.5 g/dL (3.4-4.8); Alkaline Phosphatase 68 U/L (40-110); Anion Gap 18 mmol/L (10-20); BUN (Urea Nitrogen) 15 mg/dL (9.8-20.1); Bilirubin, Total 0.4 mg/dL (0.2-1.2); Calc. Creatinine Clearance 0 mL/min (70-130); Calcium 9.5 mg/dL (7.8-10.44); Carbon Dioxide 23 mmol/L (23-31); Chloride 100 mmol/L (98-107); Glucose 167 mg/dL (80-115); Potassium 3.6 mmol/L (3.5-5.1); Protein, Total 7.5 g/dL (5.8-8.1); Sodium 137 mmol/L (136-145)
[2020-12-08] MEDS ORDERED: Ondansetron ODT 4 MG TAB PO PRN (13:17)
[2020-12-08] MEDS ORDERED: Ondansetron PF 4 MG/2 ML Vial IVP PRN (13:17)
[2020-12-08] MEDS ORDERED: cloNIDine 0.1 MG TAB PO PRN (13:28)
[2020-12-08] MEDS ORDERED: Labetalol HCl 100 MG/20 ML VIAL SLOW IVP PRN ×2 (14:57→16:40)
[2020-12-08 15:14] LABS: Hemoglobin A1c 6.6 % (4.0-6.0)
[2020-12-08] MEDS ORDERED: Diazepam 10 MG/2 ML SYRINGE IVP PRN (16:46)
[2020-12-08 19:09] VITALS: BMI 33.3
[2020-12-08] MEDS ORDERED: Atorvastatin Calcium 20 MG TAB PO SCH (21:00)
[2020-12-08] MEDS: Acetaminophen 325 MG TAB PO PRN (21:18)
[2020-12-08] MEDS: hydrOXYzine Pamoate 25 mg Capsule PO PRN (21:18)
[2020-12-08] MEDS: Atorvastatin Calcium 40 MG TAB PO SCH (21:19)
[2020-12-08] MEDS: Carvedilol 25 MG TAB PO SCH (21:19)
[2020-12-09] MEDS ORDERED: cloNIDine 0.1 MG TAB PO PRN (01:00)
[2020-12-09] MEDS ORDERED: Labetalol HCl 100 MG/20 ML VIAL SLOW IVP SCH (05:00)
[2020-12-09] MEDS: Levothyroxine Sodium 25 MCG TAB PO SCH (06:35)
[2020-12-09] MEDS: hydrOXYzine Pamoate 25 mg Capsule PO PRN ×2 (06:35→22:38)
[2020-12-09] MEDS ORDERED: FLU VACC QS2020-21(6MOS UP)/PF 60 MCG/0.5 ML SYRINGE IM ONE (09:00)
[2020-12-09] MEDS ORDERED: PARoxetine 20 MG TAB PO SCH (09:00)
[2020-12-09] MEDS ORDERED: Ergocalciferol 1.25 MG(50,000 UNITS) CAP PO SCH (09:00)
[2020-12-09] MEDS ORDERED: Non-Formulary Item 1 EACH (Cholecalciferol (Vitamin D3) [Vitamin D3] 50,000 UNIT Capsule) PO SCH (09:00)
[2020-12-09] MEDS: Acetaminophen 325 MG TAB PO PRN ×3 (09:45→23:55)
[2020-12-09] MEDS: Aspirin 81 mg Enteric Coated Tablet PO SCH (09:53)
[2020-12-09] MEDS: Famotidine 20 MG TAB PO SCH (09:54)
[2020-12-09] MEDS: Amlodipine 10 MG TAB PO SCH (09:54)
[2020-12-09] MEDS: Losartan 25 MG TAB PO SCH (09:55)
[2020-12-09] MEDS: Fenofibrate 48 MG TAB PO SCH (09:55)
[2020-12-09] MEDS: Carvedilol 25 MG TAB PO SCH ×2 (09:55→18:22)
[2020-12-09] MEDS: hydrALAZINE 25 MG TAB PO SCH ×3 (09:55→22:38)
[2020-12-09] MEDS: PARoxetine CR 12.5 MG TAB PO SCH (09:56)
[2020-12-09] MEDS: Oxybutynin ER 5 MG TAB PO SCH (11:21)
[2020-12-09] MEDS: Atorvastatin Calcium 40 MG TAB PO SCH (22:38)
[2020-12-10] MEDS: Acetaminophen 325 MG TAB PO PRN (05:11)
[2020-12-10] MEDS: Levothyroxine Sodium 25 MCG TAB PO SCH (05:12)
[2020-12-10] MEDS: hydrOXYzine Pamoate 25 mg Capsule PO PRN (08:20)
[2020-12-10] MEDS ORDERED: Ibuprofen 600 MG TAB PO SCH ×2 (08:45→18:15)
[2020-12-10] MEDS ORDERED: Iopamidol-370 76% 500 ML 1 ML ONE (09:30)
[2020-12-10] MEDS: Fenofibrate 48 MG TAB PO SCH (09:56)
[2020-12-10] MEDS: Oxybutynin ER 5 MG TAB PO SCH (09:56)
[2020-12-10] MEDS: Famotidine 20 MG TAB PO SCH (09:56)
[2020-12-10] MEDS: hydrALAZINE 25 MG TAB PO SCH ×2 (09:57→15:02)
[2020-12-10] MEDS: Carvedilol 25 MG TAB PO SCH ×2 (09:57→17:51)
[2020-12-10] MEDS: Aspirin 81 mg Enteric Coated Tablet PO SCH (09:58)
[2020-12-10] MEDS: Amlodipine 10 MG TAB PO SCH (09:58)
[2020-12-10] MEDS: Losartan 25 MG TAB PO SCH (09:58)
[2020-12-10] MEDS: PARoxetine CR 12.5 MG TAB PO SCH (10:10)
[2020-12-10 15:07] VITALS: BP 137/73
[2020-12-10 15:51] VITALS: TEMP 98.1
[2020-12-11] MEDS ORDERED: metFORMIN 500 MG TAB PO SCH (08:00)
== END 2020-12-10 20:12 | disposition home or self-care (01) | DRG 304 ==
LOC: ERS 09:33 → OBSVTOIN 12:42 → ERHOLD 12:42 → 2SE 16:48
PROVIDERS: ADMIT Family Medicine; ATTEND Family Medicine
DX: I16.0 Hypertensive urgency (principal); I63.9 Cerebral infarction, unspecified; I11.0 Hypertensive heart disease with heart failure; F41.9 Anxiety disorder, unspecified; F42.9 Obsessive-compulsive disorder, unspecified; I50.9 Heart failure, unspecified; E78.5 Hyperlipidemia, unspecified; E03.9 Hypothyroidism, unspecified; K21.9 Gastro-esophageal reflux disease without esophagitis; I25.10 Atherosclerotic heart disease of native coronary artery without angina pectoris; N39.46 Mixed incontinence; E11.9 Type 2 diabetes mellitus without complications; I65.23 Occlusion and stenosis of bilateral carotid arteries; I25.2 Old myocardial infarction; Z88.0 Allergy status to penicillin; Z79.899 Other long term (current) drug therapy; Z91.19 Patient's noncompliance with other medical treatment and regimen; R29.700 NIHSS score 0
CPT/HCPCS: 36415; 70450; 70496; 70498; 70551; 80053; 83036; 84484; 85025; 93005; 93306; 93880; 96374; 96375; G0378; J3360; Q0177; Q9967

== ENCOUNTER 2025-05-29 18:42 | Inpatient (IN) | payer BC, MEDICARE ==
[2025-05-29 20:59] LABS: #Basophils 0.06 10x3/uL (0.0-0.2); #Eosinophils 0.07 10x3/uL (0.0-0.7); #Monocytes 0.86 10x3/uL (0.11-0.59); #Neutrophils 8.32 10x3/uL (1.40-6.50); %Basophils 0.5 % (0.0-1.0); %Eosinophils 0.6 % (0.0-10.0); %Lymphocytes 22.1 % (21.0-51.0); %Monocytes 7.2 % (0.0-10.0); %Neutrophils 69.3 % (42.0-75.0); Hematocrit 35.6 % (36.0-47.0); Hemoglobin 12.1 g/dL (12.0-16.0); Mean Corpuscular Hemoglobin 28.9 pg (27.0-31.0); Mean Corpuscular Volume 85.0 fL (78.0-98.0); Platelet Count 366 10x3/uL (130-400); Red Blood Cell (RBC) Count 4.19 mill/uL (4.20-5.40); White Blood Cell (WBC) Count 11.99 10x3/uL (4.8-10.8)
[2025-05-29 21:22] LABS: ALT (SGPT) 24 U/L (Less than 34); AST (SGOT) 32 U/L (11-34); Albumin 4.2 g/dL (3.1-4.5); Alkaline Phosphatase 67 U/L (40-110); Anion Gap 21 mmol/L (10-20); BUN (Urea Nitrogen) 22 mg/dL (9.8-20.1); Bilirubin, Total 0.6 mg/dL (0.3-1.2); Calc. Creatinine Clearance 0 mL/min (70-130); Calcium 9.3 mg/dL (7.8-10.44); Carbon Dioxide 14 mmol/L (23-31); Chloride 99 mmol/L (98-107); Globulin 3.4 g/dL (2.4-3.5); Glucose 155 mg/dL (80-115); Potassium 4.7 mmol/L (3.5-5.1); Sodium 129 mmol/L (136-145)
[2025-05-29 21:30] LABS: Lipase 65 U/L (8-78); Magnesium 1.9 mg/dL (1.6-2.6)
[2025-05-29 21:42] LABS: Acetaminophen Less than 10 mcg/mL (Less than 10); Salicylate Less than 8.0 mg/dL (Less than 8.0)
[2025-05-30 00:31] LABS: Bacteria/HPF None Seen HPF (None Seen); CAUTI Indications for Culture Alt mental st,lethar; Glucose, Urine (Dipstick) Normal (Negative); Leukocyte Negative Leu/uL (Negative); Protein, Urine (Dipstick) Negative (Neg-Trace); RBC/HPF 0-3 HPF (0-3); Specific Gravity, Urine 1.017 (1.002-1.036); WBC/HPF 0-3 HPF (0-3)
[2025-05-30 00:32] LABS: Urine Culture Reflex No No
[2025-05-30 00:40] LABS: Cocaine Metabolite Screen Negative (Negative); THC/Cannabinoid Screen Negative (Negative); Tricyclic Screen Negative (Negative)
[2025-05-30] MEDS ORDERED: Senokot S 8.6-50 MG TAB PO PRN (02:05)
[2025-05-30] MEDS ORDERED: Ondansetron PF 4 MG/2 ML Vial IVP PRN (02:05)
[2025-05-30] MEDS ORDERED: Calcium Carbonate 500 MG ChewTAB PO PRN (02:05)
[2025-05-30] MEDS ORDERED: Electrolyte Replacement Protocol 1 EACH FS SCH (02:15)
[2025-05-30 02:48] VITALS: BMI 27.6
[2025-05-30 03:45] LABS: #Basophils 0.04 10x3/uL (0.0-0.2); #Eosinophils 0.05 10x3/uL (0.0-0.7); #Monocytes 0.64 10x3/uL (0.11-0.59); #Neutrophils 5.55 10x3/uL (1.40-6.50); %Basophils 0.5 % (0.0-1.0); %Eosinophils 0.6 % (0.0-10.0); %Lymphocytes 26.1 % (21.0-51.0); %Monocytes 7.5 % (0.0-10.0); %Neutrophils 65.1 % (42.0-75.0); Hematocrit 31.9 % (36.0-47.0); Hemoglobin 10.7 g/dL (12.0-16.0); Mean Corpuscular Hemoglobin 29.2 pg (27.0-31.0); Mean Corpuscular Volume 86.9 fL (78.0-98.0); Platelet Count 308 10x3/uL (130-400); Red Blood Cell (RBC) Count 3.67 mill/uL (4.20-5.40); White Blood Cell (WBC) Count 8.53 10x3/uL (4.8-10.8)
[2025-05-30 04:06] LABS: ALT (SGPT) 21 U/L (Less than 34); AST (SGOT) 19 U/L (11-34); Albumin 3.7 g/dL (3.1-4.5); Alkaline Phosphatase 59 U/L (40-110); Anion Gap 14 mmol/L (10-20); BUN (Urea Nitrogen) 18 mg/dL (9.8-20.1); Bilirubin, Total 0.5 mg/dL (0.3-1.2); Calc. Creatinine Clearance 79 mL/min (70-130); Calcium 8.4 mg/dL (7.8-10.44); Carbon Dioxide 19 mmol/L (23-31); Chloride 103 mmol/L (98-107); Globulin 2.5 g/dL (2.4-3.5); Glucose 159 mg/dL (80-115); Potassium 3.6 mmol/L (3.5-5.1); Sodium 132 mmol/L (136-145)
[2025-05-30 04:29] LABS: Thyroid Stimulating Hormone 5.5027 uIU/mL (0.35-4.94); Vitamin B12 464.0 pg/mL (211-911)
[2025-05-30] MEDS: Magnesium 2 GM/50 ML(in water) 2 GM in Premix 1 BAG IVPB SCH (11:03)
[2025-05-30] MEDS: Gabapentin 300 MG CAP PO SCH (11:04)
[2025-05-30] MEDS: Rosuvastatin 20 MG TAB PO SCH (11:06)
[2025-05-30] MEDS: PARoxetine 20 MG TAB PO SCH (11:06)
[2025-05-30] MEDS: Enoxaparin 40 MG (0.4 mL) SYRINGE SC SCH (11:08)
[2025-05-30] MEDS: Carvedilol 25 MG TAB PO SCH (17:09)
[2025-05-31 09:40] LABS: Anion Gap 12 mmol/L (10-20); BUN (Urea Nitrogen) 18 mg/dL (9.8-20.1); Calc. Creatinine Clearance 74 mL/min (70-130); Calcium 8.2 mg/dL (7.8-10.44); Carbon Dioxide 20 mmol/L (23-31); Chloride 104 mmol/L (98-107); Glucose 115 mg/dL (80-115); Potassium 4.0 mmol/L (3.5-5.1); Sodium 132 mmol/L (136-145)
[2025-05-31] MEDS: Acetaminophen 325 MG TAB PO PRN (10:05)
[2025-06-01 09:21] LABS: Hematocrit 31.9 % (36.0-47.0); Hemoglobin 10.9 g/dL (12.0-16.0); Mean Corpuscular Hemoglobin 29.7 pg (27.0-31.0); Mean Corpuscular Volume 86.9 fL (78.0-98.0); Platelet Count 267 10x3/uL (130-400); Red Blood Cell (RBC) Count 3.67 mill/uL (4.20-5.40); White Blood Cell (WBC) Count 6.43 10x3/uL (4.8-10.8)
[2025-06-01 09:47] LABS: Anion Gap 13 mmol/L (10-20); BUN (Urea Nitrogen) 15 mg/dL (9.8-20.1); Calc. Creatinine Clearance 89 mL/min (70-130); Calcium 8.4 mg/dL (7.8-10.44); Carbon Dioxide 21 mmol/L (23-31); Chloride 106 mmol/L (98-107); Glucose 122 mg/dL (80-115); Potassium 4.0 mmol/L (3.5-5.1); Sodium 136 mmol/L (136-145)
[2025-06-01 15:50] VITALS: BP 131/62; TEMP 98.2
[2025-06-02] MEDS ORDERED: PNEUMOC 20-VAL CONJ-DIP CRM/PF 0.5 ML SYRINGE IM ONE (09:00)
== END 2025-06-01 17:45 | disposition home or self-care (01) | DRG 945 ==
LOC: ERS 18:42 → 2SE 05-30 01:55 → OBSVTOIN 05-31 14:24
PROVIDERS: ADMIT Internal Medicine; ATTEND Internal Medicine
PROC: F07Z5ZZ Bed Mobility Treatment (ICD-10-PCS; principal; 2025-05-30)
DX: R53.81 Other malaise (principal); E87.1 Hypo-osmolality and hyponatremia; E87.20 Acidosis, unspecified; I50.32 Chronic diastolic (congestive) heart failure; I25.10 Atherosclerotic heart disease of native coronary artery without angina pectoris; I11.0 Hypertensive heart disease with heart failure; E11.9 Type 2 diabetes mellitus without complications; Z88.0 Allergy status to penicillin; F41.9 Anxiety disorder, unspecified; F42.9 Obsessive-compulsive disorder, unspecified; E03.9 Hypothyroidism, unspecified; F32.A Depression, unspecified; Z86.73 Personal history of transient ischemic attack (TIA), and cerebral infarction without residual deficits; I10 Essential (primary) hypertension; I95.1 Orthostatic hypotension; F03.90 Unspecified dementia, unspecified severity, without behavioral disturbance, psychotic disturbance, mood disturbance, and anxiety; D64.9 Anemia, unspecified; Z79.899 Other long term (current) drug therapy; Z79.890 Hormone replacement therapy
CPT/HCPCS: 36415; 51702; 70450; 70553; 76376; 80048; 80053; 80306; 80307; 81001; 82550; 82607; 83605; 83690; 83735; 83880; 84439; 84443; 84484; 85025; 85027; 93005; 96360; 96361; 96372; 96374; 96375; G0378; J1650; J2060; J3475; J7120